=== PATIENT | female | born 1975 | race Two or more races ===

== ENCOUNTER 2021-09-03 11:14 | Emergency (ER) | payer OTHER, SELFPAY ==
[2021-09-03 11:31] VITALS: BP 134/74; PULSE 53; RESP 17; TEMP 36.6; O2SAT 98; BMI 22.8
[2021-09-03 12:04] LABS: Appearance Urine CLEAR; Color Urine YELLOW; Glucose Urine UA NEG (NEG); Leukocyte Esterase Urine NEG (NEG); Nitrite Urine NEG (NEG); PH 5.5 (5.0-8.0); Specific Gravity - Urine >= 1.030 (1.005-1.025); UACC Culture Trigger NO; Urine Blood 1+ (NEG); Urine Ketones NEG (NEG); Urine Protein NEG (NEG-TRACE)
[2021-09-03 12:06] LABS: UPreg QC Valid YES; Urine Pregnancy NEGATIVE (NEGATIVE)
[2021-09-03 12:17] LABS: Squamous Epithelial Cell Urine TRACE /LPF; WBC Urine 0-2 /HPF (0-4)
--- NOTE | 2021-09-03 13:28 | ED_ITS ---
HPI - Female Genitourinary General Chief complaint: Urogenital-Female Stated complaint: UTI? Time Seen by Provider: 09/03/21 13:18 Source: patient Mode of arrival: ambulatory History of Present Illness HPI Narrative: 46-year-old female with no significant past medical history presenting to the ED complaining of dysuria, frequency, urgency, and mild suprapubic abdominal discomfort times 3-4 days. Denies fever, chills, abdominal pain, na usea/vomiting, flank pain, vaginal bleeding/discharge. MD elicited complaint: dysuria and UTI Onset (ago): day(s) Related Data Previous Rx's Medication Instructions Recorded phenazopyridine 200 mg tablet 200 mg PO TID PRN pain 6 doses #6 09/03/21 (Pyridium) tabs Allergies Allergy/AdvReac Type Severity Reaction Status Date / Time No Known Allergies Allergy Verified 09/03/21 13:28 Review of Systems Review of Systems: Constitutional: No Fever, No Chills ENT/Mouth: No Ear Pain, No Nasal Congestion, No Sinus Pain, No Hoarseness, No sore throat, No Rhinorrhea, No Swallowing Difficulty Cardiovascular: No Chest Pain, No SOB Respiratory: No Cough, No Sputum, No Wheezing Gastrointestinal: No Nausea, No Vomiting, No Diarrhea, No Constipation, No Abdominal pain Genitourinary: + Dysuria, + Urinary Frequency, No Hematuria, No Urinary Incontinence/retention, + Urgency, No Flank Pain Musculoskeletal: No joint pain, No Myalgias, No Joint Swelling Skin: No Skin Lesions, No rash Neuro: No Weakness Yes all other systems are reviewed and are negative Constitutional: Constitutional: Reports as per [facility] Past Medical History Attestation statement: The following information was validated with the patient. Physical Exam Vital Signs: Vital Signs: Last Vital Signs Temp 98 F 09/03/21 11:31 Pulse 53 09/03/21 11:31 Resp 17 09/03/21 11:31 BP 134/74 09/03/21 11:31 Pulse Ox 98 09/03/21 11:31 O2 Del Method 09/03/21 11:31 BMI result Body Mass Index 22.8 Const: General: cooperative, healthy appearing and no acute distress Orientation/consciousness: patient oriented x3 Limitations: no limitations HEENT: Head: Yes normal to inspection and Yes atraumatic Ears: hearing grossly normal bilaterally General nose exam: Normal external nose present Face and sinus: Yes normal facial exam Eyes: General: appearance normal, both eyes and all related structures EOM: EOMs intact bilaterally Neck: Neck: Yes normal visual inspection and Yes no meningeal signs Resp: Effort & Inspection: normal respiratory effort and no respiratory distress Auscultation: clear to auscultation bilaterally Cardio: Rate: regular rate Heart sounds: S1 normal heart sound present and S2 normal heart sound present GI: Inspection: Yes normal to inspection Palpation (GI): Soft to palpation, Tenderness to palpation present (GI) suprapubicly; with no rebound tenderness, no guarding and not rigid : General: Yes no CVA tenderness Back/Spine/Pelvis: Back: no CVA tenderness Skin: Rashes: no rashes Wounds: no wounds Neuro: General: patient oriented x3, tone normal and no meningeal signs Gait exam (Neuro): Normal gait present Extrem: General: Yes normal to inspection MDM - Female Genitourinary MDM Narrative Medical decision making narrative: 46-year-old female with no significant past medical history presenting to the ED complaining of dysuria, frequency, urgency, and mild suprapubic abdominal discomfort times 3-4 days. On exam vital signs stable, NAD/nontoxic appearing, abdomen soft with mild suprapubic tenderness, no rebound or guarding, no CVA tenderness. Concern for UTI or cystitis. Low suspicion for pyelo, renal stone, ovarian torsion/appendicitis or diverticulitis Plan: UA Differential Diagnosis Differential diagnosis: Likely urinary tract infection, vaginitis and cystitis Medical Records Attestation: I reviewed the patient's medical records. Lab Data Attestation: I reviewed the patient's lab results. Labs: Lab Results 09/03/21 09/03/21 Range/Units 11:58 11:58 Urine Color YELLOW Urine Appearance CLEAR Urine pH 5.5 (5.0-8.0) Ur Specific [place] >= 1.030 H (1.005-1.025) Urine Protein NEG (NEG-TRACE) MG/DL Urine Glucose (UA) NEG (NEG) MG/DL Urine Ketones NEG (NEG) MG/DL Urine Blood 1+ H (NEG) Urine Nitrite NEG (NEG) Ur Leukocyte Esterase NEG (NEG) Urine RBC 1-4 (0) /HPF Urine WBC 0-2 (0-4) /HPF Ur Squamous Epith Cells TRACE /LPF Urine Bacteria NONE /LPF Urine Test NEGATIVE (NEGATIVE) Discharge Plan Discharge Clinical Impression: Cystitis Patient Disposition: Home, Self-Care Instructions: Interstitial Cystitis (ED) Additional Instructions: Your urine does not look infected today, does have a small amount of blood in it. We will send a urine culture. If the culture turns out positive we will call you and send an antibiotic at this time As for now start taking Pyridium which will help with her symptoms, follow up with her doctor. If her symptoms persist or worsen, pain becomes unbearable, you have gross blood in her urine, abdominal pain, nausea vomiting, or back pain return to the emergency department Prescriptions: New phenazopyridine [Pyridium] 200 mg tablet 200 mg PO TID PRN (Reason: pain) Qty: 6 0RF Referrals: Physician,Unknown J [Primary Care Provider] -
[2021-09-03] MEDS: Phenazopyridine HCL 200 MG TABLET PO (13:45)
== END 2021-09-03 14:13 | disposition home or self-care (01) ==
PROVIDERS: Emergency Provider Emergency Medicine
DX: N30.91 Cystitis, unspecified with hematuria (principal); R30.0 Dysuria; R35.0 Frequency of micturition; Z79.899 Other long term (current) drug therapy
CPT/HCPCS: 81001; 81025; 99283; 99284